=== PATIENT | male | born 1980 ===

== ENCOUNTER 2020-05-09 17:10 | Emergency (ER) | payer OTHER ==
[2020-05-09] MEDS ORDERED: DEXAMETHASONE SOD PHOS INJ 10 MG/1 ML VIAL IM ONE (17:33)
[2020-05-09] MEDS ORDERED: KETOROLAC TROMETHAMINE 60 MG/2 ML SDV IM ONE (17:33)
--- NOTE | 2020-05-09 17:35 | ER Document Report ---
HPI - HPI Time Seen by Provider: 05/09/20 17:23 Context: Patient is a 39-year-old male who presents emergency department with a chief complaint of back pain. Patient denies any injury to his back. Patient states that he has been doing twisting motions at work. Patient has a history of chron ic back pain due to being in the . Patient states that his pain starts in his left lower back and radiates down his legs. He denies any numbness or tingling. Denies any bladder or bowel dysfunction. Denies any history of IV drug use. - ROS Systems Reviewed and Negative: Yes All other systems reviewed and negative - CONSTITUTIONAL Constitutional: DENIES: Fever, Chills - NEURO Neurology: DENIES: Weakness - CARDIOVASCULAR Cardiovascular: DENIES: Chest pain - RESPIRATORY Respiratory: DENIES: Trouble Breathing, Coughing - GASTROINTESTINAL Gastrointestinal: DENIES: Nausea, Patient vomiting - MUSCULOSKELETAL Musculoskeletal: REPORTS: Extremity pain - Left lower leg, Back Pain - Left low back. DENIES: Neck Pain, Swelling - DERM Skin Color: Normal Skin Problems: None Past Medical History - General Information source: Patient - Social History Smoking Status: Never Smoker Family History: Reviewed & Not Pertinent Vertical Provider Document - CONSTITUTIONAL Agree With Documented VS: Yes Exam Limitations: No Limitations General Appearance: No Apparent Distress - INFECTION CONTROL TRAVEL OUTSIDE OF THE [place] IN LAST 30 DAYS: No - HEENT HEENT: Atraumatic, Normocephalic, PERRLA - NECK Neck: Normal Inspection - RESPIRATORY Respiratory: No Respiratory Distress - CARDIOVASCULAR Cardiovascular: Regular Rate, Regular Rhythm Pulses: Normal: Radial, Posterior tibial, Dorsalis pedis - GI/ABDOMEN Gastrointestinal: Abdomen Soft, Abdomen Non-Tender - MUSCULOSKELETAL/EXTREMETIES Musculoskeletal/Extremeties: FROM, Tender - Left low back - NEURO Level of Consciousness: Awake, Alert, Appropriate Deep Tendon Reflexes: 2+ - DERM Integumentary: Warm, Dry, No Rash Course - Re-evaluation Re-evalutation: 05/09/20 19:17 Patient states that he does feel better after receiving Toradol and Decadron. He was able to move for me. I was able to elicit deep tendon reflexes. Patient has an ointment with his primary care provider tomorrow. Will prescribe him lidocaine patches and follow-up with primary care. He is in agreement with this plan. I have a low suspicion for cauda equina syndrome, epidural abscess, or any life-threatening etiology at this time. Follow-up precautions were given. Verbal discharge instructions were given to the patient. They verbalized understanding. They are stable for discharge. - Vital Signs Vital signs: Temp Pulse Resp BP Pulse Ox 98.5 F 73 18 130/63 H 99 05/09/20 17:13 05/09/20 17:13 05/09/20 17:13 05/09/20 17:13 05/09/20 17:13 Discharge - Discharge Clinical Impression: Back pain Qualifiers: Back pain location: low back pain Chronicity: acute Back pain laterality: left Sciatica presence: with sciatica Sciatica laterality: sciatica of left side Qualified Code(s): M54.42 - Lumbago with sciatica, left side Condition: Stable Disposition: HOME, SELF-CARE Additional Instructions: You were seen today in the emergency department for back pain. You received Toradol and Decadron here in the emergency department. In about 8 hours, you ca n take a dose of ibuprofen. Take ibuprofen 600 mg every 6 hours for your pain. Please see if he can get a referral for physical therapy. Follow-up with your primary care provider tomorrow. You can keep the lidocaine patch on for the next 12 hours and then take it off for 12 hours and then you can apply another patch. Prescriptions: Lidocaine [Lidoderm 5% (700 mg) Transdermal Patch] 1 patch TP DAILYP PRN #10 adh..patch PRN Reason: Forms: Return to Work Referrals: TUYET ORTIZ DO [NO LOCAL MD] - Follow up tomorrow
[2020-05-09] MEDS ORDERED: LIDOCAINE 5% (700 MG) TRANSDERMAL ADH..PATCH TP ONE (17:47)
[2020-05-09 19:41] VITALS: BP 107/59
== END 2020-05-09 19:42 | disposition home or self-care (01) ==
LOC: ER 17:10
DX: M54.42 Lumbago with sciatica, left side (principal); G89.29 Other chronic pain; M54.9 Dorsalgia, unspecified
CPT/HCPCS: 99284; 96372; J1885; J1100